=== PATIENT | female | born 1990 | race Caucasian/White ===

== ENCOUNTER 2019-07-18 16:54 | Inpatient (IN) | payer OTHER ==
[~2019-07-18] VITALS: Ht 157.4 cm; Wt 90.9 kg
--- NOTE | ~2019-07-18 | EKG ---
[place], [place] ELECTROCARDIOGRAM REPORT NAME: YANCY FAJARDO UNIT #: [id number] ROOM: 425 DOCTOR: MARY DRAFT REPORT BIRTHDATE: [birth year] [facility] Test Date: 2019-07-18 Test Time: 18:30:47 Pat Name: YANCY FAJARDO Department: Room: 425 Gender: F [employer] Program Coordinator: Chris Little : 1990 Requested By: TEMO COLVIN PA-C Order Number: [id number] Reading MD: Faye Capone MD Measurements Intervals [place] Rate: 72 P: 70 DC: 159 QRS: 17 QRSD: 98 T: 43 QT: 379 QTc: 415 Interpretive Statements Sinus rhythm Electronically Signed On 07-19-2019 14:22:33 PDT by Faye Capone MD CM:[id number]:ELECTROCARDIOGRAM REPORT 1830 1422 TEMO COLVIN PA-C EPIPHANY DRAFT REPORT TEMO COLVIN PA-C
--- NOTE | 2019-07-18 17:02 | NUR ---
AMBULATORY TO THE BATHROOM FOR CLEAN CATCH URINE.
--- NOTE | 2019-07-18 17:46 | NUR ---
REMAINS INTERMITTENTLY TEARFUL. MEAL TRAY ORDERED.
[2019-07-18 18:01] LABS: BASO # 0.1 10*3/uL (0.0-0.1); BASO % 0.7 % (0.0-1.0); EOS # 0.1 10*3/uL (0.0-0.4); EOS % 0.7 % (1.0-4.0); HEMATOCRIT 36.5 % (37.0-47.0); HEMOGLOBIN 11.8 g/dl (12.0-16.0); LYMPH # 1.6 10*3/uL (1.3-4.4); MEAN CORPUSCULAR HGB 29.4 pg (27.0-31.0); MEAN CORPUSCULAR HGB CONC 32.3 g/dl (33.0-37.0); MONO # 0.5 10*3/uL (0.1-1.0); MONO % 6.4 % (3.0-9.0); NEUT % 72.8 % (47.0-73.0); PLATELET COUNT AUTOMATED 281 10*3/uL (130-400); RED BLOOD COUNT 4.01 10*6/uL (4.10-5.10); RED CELL DISTRI WIDTH 12.6 % (0-14.5); WHITE BLOOD COUNT 8.2 10*3/uL (4.8-10.8)
[2019-07-18 18:15] LABS: ALBUMIN 3.7 gm/dl (3.1-4.5); ALKALINE PHOSPHATASE 61 U/L (45-117); BUN 16 mg/dl (7-24); CHLORIDE 105 mmol/L (98-107); CREATININE 0.75 mg/dL (0.55-1.02); SGOT/AST 29 IU/L (3-35); SGPT/ALT 46 U/L (12-78); SODIUM 136 mmol/L (136-145); TOTAL PROTEIN 7.5 gm/dL (6.4-8.2)
[2019-07-18 18:24] LABS: ETHYL ALCOHOL < 3.0 mg/dl (<3)
--- NOTE | 2019-07-18 18:28 | NUR ---
Report to [facility] room 425.
[2019-07-18 18:34] LABS: INTERNATIONAL NORM RATIO 0.9 (2.0-3.5)
--- NOTE | 2019-07-18 18:35 | NUR ---
Time: 1834 A 28 year old female admitted to 4E under services of TYRONE ROMERO DO. Pt. arrived via stretcher from ER. Chief complaint: here for nv opiate withdrawal. GUANACO TURNER
[2019-07-18 18:37] LABS: LIPASE 124 U/L (73-393)
[2019-07-18 18:38] LABS: BETA-HCG, QUANT < 1.0 mIU/mL (1-3)
[2019-07-18] MEDS ORDERED: TRILEPTAL PO (18:38)
[2019-07-18] MEDS ORDERED: BUSPAR5 MG PO (18:38)
[2019-07-18] MEDS ORDERED: LEXAPRO10 MG PO (18:38)
--- NOTE | 2019-07-18 18:45 | NUR ---
Pt states she spoke with NV range manager in ER and ER dr and she notified them that she did not want treated with subutex or suboxone. States that the last time she came off heroin she did not use that either. States she doesn't want anything in her system. She states they told her that they could use libruim.
[2019-07-18 18:53] VITALS: BP 125/50
--- NOTE | 2019-07-18 19:03 | NUR ---
Spoke with Dr. Veliz regarding pt statements to me regarding not wanting to take subutex. Pt states she had spoke with NV renal case manager regarding this as well as ER Dr and she states that NV mentioned librium for pt. Pt is also requesting treatment for trichomonas states she [facility] and was diagnosed with this and did not get treatment, and a nicotrol inhaler instead of patch or gum. All this communicated to Dr. Veliz.
[2019-07-18 20:00] VITALS: BP 124/73
[2019-07-18 20:27] LABS: BILIRUBIN NEGATIVE (NEGATIVE); BLOOD NEGATIVE (NEGATIVE); CLARITY CLEAR (CLEAR); COLOR YELLOW (YELLOW); GLUCOSE NEGATIVE (NEGATIVE); KETONE TRACE (NEGATIVE); LEUKO ESTERASE NEGATIVE (NEGATIVE); NITRITE NEGATIVE (NEGATIVE); PH 6.5 (5.0-9.0); UROBILINOGEN 0.2 E.U./dl (0.2-1.0)
[2019-07-18 20:35] LABS: URINE AMPHETAMINES < 1000 (1000ng/ml); URINE BARBITURATES < 200 (200ng/ml); URINE BENZODIAZEPINES < 200 (200ng/ml); URINE CANNABINOIDS (THC) < 50 (50ng/ml); URINE COCAINE > 300 (300ng/ml); URINE METHADONE < 300 (300ng/ml); URINE OPIATES < 300 (300ng/ml)
[2019-07-18 20:38] LABS: URINE PHENCYCLIDINE < 25 (25ng/ml)
[2019-07-18 20:40] LABS: EPITHELIAL CELLS 51-100; MUCOUS 2+
--- NOTE | 2019-07-18 23:28 | NUR ---
DR JENSEN NOTIFIED PT MED REC UP TO DATE, PT REQUESTING MEDS. URINES SENT TO LAB AND RESULTS ARE IN.
[2019-07-19] VITALS: BP 116/60
[2019-07-19 04:00] VITALS: BP 107/56
--- NOTE | 2019-07-19 05:15 | NUR ---
PATIENT STATES SHE DOES NOT WANT SUBUTEX TAPER. DOCUMENTED REFUSAL IN EMAR. PT HAS NO COMPLAINTS OR VISIBLE WITHDRAWAL S/S. BED IN LOWEST LOCKED POS, CALL LIGHT IN REACH.
[2019-07-19 08:00] VITALS: BP 112/61
[2019-07-19 11:54] VITALS: BP 96/50
--- NOTE | 2019-07-19 12:08 | NUR ---
PATIENT REFUSING SUBUTEX, STATES WILL TAKE LIBRIUM. PER DR. MCMAHON, LIBRIUM NOT INDICATED.
--- NOTE | 2019-07-19 15:05 | NUR ---
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 DR. MCMAHON AND NURSING ENROLLED NURSE NOTIFIED, MESSAGE LEFT WITH [facility]. PATIENT SIGNED AMA PAPER AND AMBULATED TO [facility] WITH ALL BELONGINGS FOR TRANSPORT TO HER SISTER'S HOME.
[2019-07-23 04:09] LABS: GONOCOCCUS BY NAA Negative (Negative)
== END 2019-07-19 15:05 | disposition left against medical advice (07) | DRG 770 ==
LOC: ED 16:54 → EDHOLD 17:56 → 4E 18:24
PROVIDERS: Family Medicine; Internal Medicine; Physician Assistant; ADMIT Emergency Medicine
DX: F11.10 Opioid abuse, uncomplicated (principal); F41.9 Anxiety disorder, unspecified; F31.9 Bipolar disorder, unspecified; D64.9 Anemia, unspecified; F17.210 Nicotine dependence, cigarettes, uncomplicated; F14.90 Cocaine use, unspecified, uncomplicated; E66.9 Obesity, unspecified; Z53.29 Procedure and treatment not carried out because of patient's decision for other reasons; Z68.36 Body mass index [BMI] 36.0-36.9, adult; Z98.891 History of uterine scar from previous surgery; Z79.899 Other long term (current) drug therapy

== ENCOUNTER 2020-08-24 15:03 | Inpatient (IN) | payer OTHER ==
[~2020-08-24] VITALS: Ht 157.4 cm; Wt 94.3 kg
[~2020-08-24 15:03] MED LIST: BUSPAR5 MG PO; LEXAPRO10 MG PO; TRILEPTAL PO
--- NOTE | 2020-08-24 15:06 | NUR ---
YELLED FOR PATIENT. NO PATIENT PRESENT, TWO GARBAGE BAGS FULL OF STUFF SITTING BY TRIAGE DOOR.
[2020-08-24 15:16] VITALS: BP 121/62
[2020-08-24 15:56] LABS: BASO # 0.1 10*3/uL (0.0-0.1); BASO % 0.6 % (0.0-1.0); EOS # 0.5 10*3/uL (0.0-0.4); EOS % 4.7 % (1.0-4.0); HEMATOCRIT 40.1 % (37.0-47.0); LYMPH # 3.6 10*3/uL (1.3-4.4); MEAN CELL VOLUME 86.4 fl (81.0-99.0); MEAN CORPUSCULAR HGB 28.2 pg (27.0-31.0); MEAN CORPUSCULAR HGB CONC 32.7 g/dl (33.0-37.0); MONO # 0.7 10*3/uL (0.1-1.0); MONO % 6.1 % (3.0-9.0); NEUT # 6.1 10*3/uL (2.3-7.9); NEUT % 55.2 % (47.0-73.0); PLATELET COUNT AUTOMATED 252 10*3/uL (130-400); RED BLOOD COUNT 4.64 10*6/uL (4.10-5.10); RED CELL DISTRI WIDTH 12.8 % (0-14.5)
[2020-08-24 15:59] LABS: BILIRUBIN Negative (Negative); BLOOD Negative (Negative); CLARITY Clear (Clear); COLOR Yellow (Yellow); GLUCOSE Negative (Negative); KETONE Negative (Negative); LEUKO ESTERASE Negative (Negative); NITRITE Negative (Negative); PH 5.5 (4.5-8.0); SPECIFIC GRAVITY 1.015 (1.001-1.030)
[2020-08-24 16:00] LABS: URINE AMPHETAMINES > 1000 (1000ng/ml); URINE BARBITURATES < 200 (200ng/ml); URINE BENZODIAZEPINES > 200 (200ng/ml); URINE CANNABINOIDS (THC) < 50 (50ng/ml); URINE COCAINE > 300 (300ng/ml); URINE METHADONE < 300 (300ng/ml); URINE OPIATES > 300 (300ng/ml)
[2020-08-24 16:03] LABS: URINE PHENCYCLIDINE < 25 (25ng/ml)
[2020-08-24 16:07] LABS: RBC 0-2 rbc/hpf (0-2); WBC 0-2 wbc/hpf (0-5)
[2020-08-24 16:08] LABS: HYALINE CAST 0-2; MUCOUS TRACE
[2020-08-24 16:14] LABS: ALBUMIN 3.3 gm/dl (3.1-4.5); ALKALINE PHOSPHATASE 69 U/L (45-117); BUN 7 mg/dl (7-24); CHLORIDE 104 mmol/L (98-107); CREATININE 0.79 mg/dL (0.55-1.02); POTASSIUM 3.2 mmol/L (3.5-5.1); SGOT/AST 52 IU/L (3-35); SGPT/ALT 75 U/L (12-78); SODIUM 136 mmol/L (136-145); TOTAL PROTEIN 7.3 gm/dL (6.4-8.2)
[2020-08-24 16:21] LABS: ETHYL ALCOHOL < 3.0 mg/dl (<3)
[2020-08-24 16:23] LABS: ACETAMINOPHEN (TYLENOL) < 5.0 ug/ml (10-30)
--- NOTE | 2020-08-24 20:16 | NUR ---
BELONGINGS TAKEN TO [facility].
[2020-08-24] MEDS ORDERED: BUSPAR5 MG PO (20:33)
[2020-08-24] MEDS ORDERED: TOPAMAX25 M3 PO (20:34)
[2020-08-24] MEDS ORDERED: EFFEXOR-XR37.5 MG PO (20:34)
[2020-08-24] MEDS ORDERED: DOXEPIN HCL6 MG PO (20:35)
--- NOTE | 2020-08-24 20:45 | NUR ---
MEDICATIONS VERIFIED WITH [facility].
--- NOTE | 2020-08-25 04:14 | NUR ---
PATIENT IN BED RESTING WITH EYES CLOSED. RESP EASY AND NONLABORED. NO DISTRESS NOTED. RN WILL CONT TO MONITOR
[2020-08-25 05:59] LABS: BASO # 0.1 10*3/uL (0.0-0.1); BASO % 0.9 % (0.0-1.0); EOS # 0.4 10*3/uL (0.0-0.4); EOS % 6.8 % (1.0-4.0); HEMATOCRIT 38.7 % (37.0-47.0); LYMPH # 2.2 10*3/uL (1.3-4.4); LYMPH % 33.8 % (27.0-41.0); MEAN CELL VOLUME 87.8 fl (81.0-99.0); MEAN CORPUSCULAR HGB 27.9 pg (27.0-31.0); MEAN CORPUSCULAR HGB CONC 31.8 g/dl (33.0-37.0); MEAN PLATELET VOLUME 9.7 fl (9.6-12.3); MONO # 0.4 10*3/uL (0.1-1.0); MONO % 6.6 % (3.0-9.0); NEUT # 3.3 10*3/uL (2.3-7.9); NEUT % 50.7 % (47.0-73.0); PLATELET COUNT AUTOMATED 243 10*3/uL (130-400); RED BLOOD COUNT 4.41 10*6/uL (4.10-5.10); WHITE BLOOD COUNT 6.5 10*3/uL (4.8-10.8)
[2020-08-25 06:02] VITALS: BP 118/74
[2020-08-25 06:06] LABS: BUN 8 mg/dl (7-24); CHLORIDE 107 mmol/L (98-107); CREATININE 0.78 mg/dL (0.55-1.02); POTASSIUM 3.4 mmol/L (3.5-5.1); SODIUM 139 mmol/L (136-145)
--- NOTE | 2020-08-25 07:35 | NUR ---
RECIEVED REPORT FROM [facility].
--- NOTE | 2020-08-25 08:12 | NUR ---
PATIENT MEETS [facility]. PATIENT IS GOING TO FOLLOW UP WITH [facility] ON SUNDAY, August POST DISCHARGE. THE FACILITY WILL BE PROVIDING TRANSPORTATION TO FACILITY. ANTHONY HUYNH B.A. ASSORTMENT PLANNER
--- NOTE | 2020-08-25 08:58 | NUR ---
PT. PULLED IV OUT OF ARM. REFUSING ANOTHER IV AT THIS TIME.
--- NOTE | 2020-08-25 08:59 | NUR ---
PT. CURRENTLY IN ROOM EATING BREAKFAST IN BED.
--- NOTE | 2020-08-25 11:38 | NUR ---
PT. REFUSING LOVENOX AT THIS TIME.
--- NOTE | 2020-08-25 11:45 | NUR ---
PT. UP AND TO RESTROOM INDEPENDENTLY
--- NOTE | 2020-08-25 12:26 | NUR ---
PT. EATING LUNCH TRAY AT THIS TIME.
--- NOTE | 2020-08-25 13:12 | NUR ---
[facility] STAFF IN TO SEE PATIENT. PATIENT REPORTS THAT SHE STILL WANTS TO FOLLOW UP WITH [facility] FOR HER AFTERCARE PLAN. [facility] SENT REFERRAL TO FACILITY. [facility] SPOKE TO FACILITY ABOUT TRANSPORATION FOR August POST DISCHARGE. ANTHONY HUYNH B.A. E LEARNING COORDINATOR
[2020-08-25 13:34] VITALS: BP 114/66
[2020-08-25 13:54] VITALS: BP 115/57
--- NOTE | 2020-08-25 14:40 | NUR ---
29 year old FEMALE admitted to room # 505-2 for stabilization. 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 Compliant with admission procedure. Patient reports anxiety, cold sweats, and body aching, but is able to sit still and is able to focus eyes on nurse during interview. See assessment forms for additional information about patient status.
--- NOTE | 2020-08-25 15:08 | NUR ---
MEDICATED WITH PRN PO TYLENOL AND VISTARIL FOR BACK PAIN AND ANXIETY.
--- NOTE | 2020-08-25 15:23 | NUR ---
[facility] STAFF SPOKE TO [facility]. THEY WILL TRANSPORT PATIENT ON August AT NOON. [facility]'S PHONE NUMBER IS [phone]. PATIENT AGREES AND UNDERSTANDS HER AFTERCARE PLAN. ANTHONY HUYNH B.A. [employer] SERVICE SPRAY SUPERVISOR
[2020-08-25] MEDS ORDERED: EFFEXOR XR75 M1 PO (15:42)
[2020-08-25 16:00] VITALS: BP 107/56
--- NOTE | 2020-08-25 16:05 | NUR ---
Patient resting. Responding to scheduled and prn medications with fewer complaints of pain and anxiety.
--- NOTE | 2020-08-25 17:27 | NUR ---
MEDICATED WITH PRN PO MOTRIN FOR BACK MUSCLE PAIN.
[2020-08-25 20:00] VITALS: BP 115/58
--- NOTE | 2020-08-25 21:36 | NUR ---
PATIENT MEDICATED WITH TRAZODONE FOR COMPLAINTS OF INSOMNIA. WILL MONITOR FOR EFFECTIVENESS. CALL LIGHT IN REACH.
[2020-08-26] VITALS: BP 98/53
--- NOTE | 2020-08-26 01:07 | NUR ---
TRAZODONE EFFECTIVE. PATIENT IN BED SLEEPING AT THIS TIME. NO SIGNS OR SYMPTOMS OF DISTRESS NOTED.
[2020-08-26 06:41] LABS: BUN 11 mg/dl (7-24); CHLORIDE 112 mmol/L (98-107); CREATININE 0.77 mg/dL (0.55-1.02); SODIUM 142 mmol/L (136-145)
[2020-08-26 06:42] LABS: POTASSIUM 4.5 mmol/L (3.5-5.1)
[2020-08-26 08:00] VITALS: BP 102/48
[2020-08-26 12:00] VITALS: BP 98/48
[2020-08-26 16:00] VITALS: BP 100/78
--- NOTE | 2020-08-26 19:30 | NUR ---
ASSUMED CARE OF PATIENT. PATIENT IS AAOX3 SITTING IN BED WITH EASY AND REGULAR RESPERS ON ROOM AIR. ASSESSMENT IS COMPLETE WITH NO S/S OF DISTRESS OR C/O NOTED AT THIS TIME. BED IS LOW, LOCKED, AND CALL LIGHT IS WITHIN REACH. WILL CONTINUE TO MONITOR, SEE INTERVENTIONS.
[2020-08-26 20:00] VITALS: BP 124/63
[2020-08-27] VITALS: BP 104/51
--- NOTE | 2020-08-27 01:44 | NUR ---
PATIENT APPEARS TO BE SLEEPING. RESPERS EASY AND REGULAR. CALL LIGHT IS WITHIN REACH, WILL CONTINUE TO MONITOR.
--- NOTE | 2020-08-27 01:52 | NUR ---
CHART CHECK COMPLETE.
[2020-08-27 08:00] VITALS: BP 97/55
--- NOTE | 2020-08-27 11:29 | NUR ---
CONTACTED DR. HOWARD IN REGARDS TO PATIENT NEEDING TO LEAVE BECAUSE RIDE TO [facility] WILL BE HERE IN 10 MINUTES. SEE NEW ORDER.
--- NOTE | 2020-08-27 12:06 | NUR ---
PATIENT DISCHARGED TO [facility].
== END 2020-08-27 12:06 | DRG 773 ==
LOC: ED 15:03 → EDHOLD 16:49 → 5E 08-25 13:21
PROVIDERS: Hospitalist; Nurse Practitioner; Student in an Organized Health Care Education/Training Program; ADMIT Internal Medicine; ATTEND Internal Medicine
DX: F11.23 Opioid dependence with withdrawal (principal); F17.210 Nicotine dependence, cigarettes, uncomplicated; F31.9 Bipolar disorder, unspecified; F43.10 Post-traumatic stress disorder, unspecified; F19.20 Other psychoactive substance dependence, uncomplicated; D72.829 Elevated white blood cell count, unspecified; E87.6 Hypokalemia; R74.01 Elevation of levels of liver transaminase levels; R89.7 Abnormal histological findings in specimens from other organs, systems and tissues; F41.9 Anxiety disorder, unspecified; Z71.6 Tobacco abuse counseling; Z79.899 Other long term (current) drug therapy